=== PATIENT | male | born 1950 | race Caucasian/White ===

== ENCOUNTER 2021-06-17 07:58 | Observation (INO) | payer MEDICARE ==
[~2021-06-17] VITALS: Ht 175.3 cm; Wt 72.6 kg
--- NOTE | ~2021-06-17 | OP ---
[address] [address] OPERATIVE REPORT Name: ANGEL MOREL Room: [address] M.RHoney#: [id number] Admission: 06/17/21 Attend Phys: Ned Kelly MD Discharge: Date of : 46 Report #: [id number] THIS REPORT FOR: cc: Santos Lombardi Russell J. DO Haggard, Kent L MD ~ DATE OF SURGERY: 06/18/2021 PREOPERATIVE DIAGNOSIS: Foreign body in urethra. POSTOPERATIVE DIAGNOSIS: Foreign body in urethra. PROCEDURE: Cystoscopy with removal of urethral foreign body and complex Faith catheter placement. STAFF SURGEON: Sumeet Oquendo MD GUITAR MAKER HAND: None. ANESTHESIA: General. ESTIMATED BLOOD LOSS: None. COMPLICATIONS: None. SPECIMENS: Urethral foreign body. DRAINS: An 18-Sol[place] Islander tejon tip catheter. INDICATIONS: The patient is a 71-year-old male who was using a [place] penile plug that got stuck and broke off in his urethra. Attempted bedside cystoscopy with removal, unsuccessful. He now presents for cystoscopy, possible open removal of foreign body. After the risks and benefits of the procedure explained, an informed consent was obtained. DESCRIPTION OF PROCEDURE: The patient was taken to the operating room comfortably placed in the dorsal lithotomy position under adequate general anesthesia. He was sterilely prepped and draped in standard fashion exposing the genitalia. He was up to date on his Levaquin antibiotic therapy. A 22-Sol[place] Islander cystoscope was placed into the urethra. Anterior urethra was normal down to the bulbous urethra where a metal foreign body was seen with center metal 8-Sol[place] Islander wire with associated weights on it. We used a rigid grasper to grasp this and pull it out of the tissue. First three grasps were slipped off. I was able to finally get enough of a purchase to be able to remove the foreign body intact. This was sent off for pathology for gross only. Repeat cystoscopy was carried out showing minimal damage to the bulbous urethra, [place] [id number] OPERATIVE REPORT Name: ANGEL MOREL Room: [address] Venus#: [id number] Admission: 06/17/21 Attend Phys: Ned Kelly MD Discharge: Date of : 46 Report #: [id number] have a false passage found just proximal to the verumontanum on the left hand side where the device was buried, likely which is why it got embedded and broke off. I was able to put the scope into the bladder with concern if he would have any voiding issues, it might be very difficult to place a Faith catheter and thought that placing a Faith catheter might facilitate this false passage healing to some degree. I went ahead and placed an 0.035 Glidewire through the cystoscope and coiled it inside the bladder. The cystoscope was removed and an 18-Sol[place] Islander tejon tip was put in place and secured with 10 mL of sterile water. The guidewire was removed, draining clear irrigation. He tolerated it extremely well. He was extubated in the operating room, transferred to [facility] with assistance and went to recovery in stable condition. We will see him back in our office and remove the catheter in about a week. By: [id number] Aparna Oquendo MD /nt
[2021-06-17 08:08] VITALS: BP 137/82
[2021-06-17] MEDS ORDERED: LIPITOR10 MG PO (08:12)
[2021-06-17] MEDS ORDERED: FISH OIL 1,0001 EAC9 PO (08:12)
[2021-06-17] MEDS ORDERED: ALLOPURINOL 10100 M1 PO (08:12)
[2021-06-17] MEDS ORDERED: OLMESARTAN-HCT1 EACH PO (08:13)
[2021-06-17 09:02] LABS: URINE BILIRUBIN NEGATIVE (Negative); URINE BLOOD 3+ (Negative); URINE CLARITY CLEAR; URINE COLOR YELLOW; URINE GLUCOSE-RANDOM NEGATIVE (Negative); URINE KETONES NEGATIVE (Negative); URINE LEUKOCYTES 1+ (Negative); URINE NITRITE NEGATIVE (Negative); URINE PROTEIN TRACE (Negative); URINE UROBILINOGEN 0.2 E.U./dl (0.2-1.0)
[2021-06-17 09:11] LABS: SQUAMOUS 0-3 Few /LPF (0-3); URINE WBC 0-5 Rare /HPF (0-5)
[2021-06-17 09:12] LABS: BACTERIA None Seen /HPF (None Seen); CASTS None Seen /LPF (None Seen); CRYSTALS None Seen /LPF (None Seen); MUCUS 0-3 Light strn/LPF (None Seen); URINE RBC >20 Many /HPF (0-2)
[2021-06-17 09:38] LABS: ABSOLUTE BASOPHILS 0.1 thou/uL (0.0-0.2); ABSOLUTE MONOCYTES 1.5 thou/uL (0.0-1.2); ABSOLUTE NEUTROPHILS 10.4 thou/uL (1.6-8.1); BASOPHILS 0.4 %; EOSINOPHILS 0.1 %; HEMOGLOBIN 15.2 gm/dL (14.0-18.0); LYMPHOCYTES 7.7 %; MCH 33.1 pg (26.0-34.0); MCHC 33.7 g/dL (28.0-37.0); MCV 98.1 fL (80.0-100.0); MONOCYTES 11.8 %; MPV 7.6 fl. (7.2-11.1); NUCLEATED RBCS 0 /100WBC; PLATELET COUNT* 229 thou/uL (150-400); RBC 4.59 mil/uL (4.50-6.00); RDW-CV 15.2 % (10.5-14.5)
[2021-06-17 09:46] LABS: CALCIUM 9.4 mg/dL (8.5-10.1); CREATININE 1.3 mg/dL (0.6-1.3); POTASSIUM 4.3 mmol/L (3.5-5.1)
[2021-06-17 09:51] LABS: ALBUMIN 4.3 g/dL (3.4-5.0); TOTAL BILIRUBIN 1.6 mg/dL (<0.1-1.0); TOTAL PROTEIN 8.3 g/dL (6.4-8.2)
[2021-06-17 14:55] VITALS: BP 124/64
[2021-06-17 16:15] VITALS: BP 120/68
[2021-06-17 17:57] VITALS: BP 112/67
[2021-06-17] MEDS ORDERED: PRESERVISION A1 EACH PO ×2 (19:14→19:15)
[2021-06-17 19:30] VITALS: BP 133/71
--- NOTE | 2021-06-18 06:46 | NUR ---
PT SLEPT ON AND OFF OVERNIGHT. HAS DENIED NEED FOR PAIN MEDICATION, CO "DISCOMFORT" BLADDER RATES IT CONSISTENTLY 2-3. PT HAS VOIDED SEVERAL TIMES OVERNIGHT, 2350 OUT PER URINAL YELLOW URINE. UP AD JOSE FRANCISCO WALKS WITH STEADY GAIT. HAS BEEN NPO SINCE MIDNIGHT FOR UROLOGY PROCEDURE TODAY. RFA IVF INFUSING PER PUMP ORDERED. ABLE TO USE CALL LITE AND MAKE NEEDS KNOWN. SEVERAL PVR'S DONE OVERNIGHT TO MONITOR BLADDER STATUS AND [address]IG[address] AMOUNT, WITH VOID OF 350 WITHIN AN HOUR AFTER.
[2021-06-18 07:11] LABS: ABSOLUTE BASOPHILS 0.1 thou/uL (0.0-0.2); ABSOLUTE EOSINOPHILS 0.2 thou/uL (0.0-0.7); ABSOLUTE LYMPHOCYTES 1.1 thou/uL (0.8-5.3); ABSOLUTE MONOCYTES 0.9 thou/uL (0.0-1.2); ABSOLUTE NEUTROPHILS 3.9 thou/uL (1.6-8.1); BASOPHILS 0.9 %; EOSINOPHILS 3.1 %; HEMATOCRIT 45.5 % (42.0-52.0); HEMOGLOBIN 15.2 gm/dL (14.0-18.0); LYMPHOCYTES 18.5 %; MCH 33.2 pg (26.0-34.0); MCHC 33.5 g/dL (28.0-37.0); MONOCYTES 14.5 %; MPV 7.5 fl. (7.2-11.1); NUCLEATED RBCS 0 /100WBC; PLATELET COUNT* 185 thou/uL (150-400); RBC 4.59 mil/uL (4.50-6.00); RDW-CV 15.3 % (10.5-14.5); WBC 6.2 thou/uL (4.0-11.0)
[2021-06-18 07:38] LABS: CALCIUM 8.9 mg/dL (8.5-10.1); CREATININE 1.1 mg/dL (0.6-1.3); POTASSIUM 3.9 mmol/L (3.5-5.1)
[2021-06-18 08:00] VITALS: BP 145/71
[2021-06-18] MEDS ORDERED: CIPRO500 M1 PO (15:24)
[2021-06-18 15:31] VITALS: BP 145/71
--- NOTE | 2021-06-18 16:23 | NUR ---
Case Management Assessment CM met with pt to complete assessment. Pt reported he resides with . Pt reported he intends to return home upon discharge. Pt requested CM not contact his . Pt denied any past or present need for ADL or DME support. Pt denied any history of HH, rehab, or SNF. Pt to be discharged upon completion of procedure. No CM needs noted.
--- NOTE | 2021-06-18 17:11 | NUR ---
PT WAS EDUCAted on CHANGING VALDIVIA TO LEG BAG. PT DID RETURN DEMONSTRATION AND DID WELL. ALL QUESTIONS ANSWERED. SALINE LOCK REMOVED HUB INTACT. PT DENIED PAIN ON DISMISSAL.
--- NOTE | 2021-06-19 09:02 | EKG ---
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
== END 2021-06-18 17:00 | disposition home or self-care (01) ==
LOC: M.ERS 07:58 → M.TBA-ER 10:52 → M.3W 10:52
PROVIDERS: Emergency Medicine; ADMIT Internal Medicine; ATTEND Internal Medicine
DX: T19.0XXA Foreign body in urethra, initial encounter (principal); E87.1 Hypo-osmolality and hyponatremia; I10 Essential (primary) hypertension; Z20.822 Contact with and (suspected) exposure to COVID-19; R39.198 Other difficulties with micturition; E78.00 Pure hypercholesterolemia, unspecified; M10.9 Gout, unspecified; R31.9 Hematuria, unspecified; Z79.899 Other long term (current) drug therapy; X58.XXXA Exposure to other specified factors, initial encounter; Y93.89 Activity, other specified; Y92.89 Other specified places as the place of occurrence of the external cause; Y99.8 Other external cause status